=== PATIENT | female | born 1945 | race Hispanic/Latino ===

== ENCOUNTER 2017-01-01 07:37 | Day surgery (SDC) | payer MEDICARE ==
[2017-01-01] MEDS ORDERED: NACL 0.9% IR ONE (07:47)
[2017-01-01] MEDS ORDERED: TETRACAINE 0.5% OS PRN (11:25)
--- NOTE | 2017-01-01 11:34 | Anesthesia Day of Surgery ---
Anesthesia Day of Surgery - Day of Surgery Patient Examined: Yes Patient H&P Reviewed: Yes Patient is NPO: Yes
[2017-01-01] MEDS ORDERED: SUBLIMAZE ONE (11:35)
[2017-01-01] MEDS ORDERED: VERSED ONE (11:36)
--- NOTE | 2017-01-01 11:36 | Anesthesia Consultation ---
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
[2017-01-01] MEDS: VIGAMOX OS SCH ×3 (11:37→11:52)
--- NOTE | 2017-01-01 12:29 | Operative Report ---
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 [employer] HEAVY SURGEON: jc ANESTHESIA: Monitored anesthesia care RN OR LPN: COMPLICATIONS: None ALLERGIES: Codeine PREOPERATIVE NOTE: The patient is awho has the diagnosis or diagnoses salzmann' s nodule and anterior basement membrane dystrophy. The risks, benefits and alternatives ofprocedure were explained to the patient who after confirmining understanding elected to proceed with surgery. The risks discussed included but were not limited to infection,loss of vision, loss of the eye. The patient had multiple opportunities to ask questions and have them answered. A preoperative instruction sheet was provided and explained to the patient and/or family. PROGNOSIS: Excellent INDICATIONS FOR SURGERY: Distortion of vision from the lesion. Without treatment , permanent visual loss is expected. OPERATIVE REPORT: The patient was taken into the preoperative area and then sedated and monitored by Anesthesia. The patient was prepped by applying a Betadine scrub to the periorbital area, the adjacent cheek, and the forehead. The prepped areas were dried with sterile gauze. The patient was draped, and a speculum was placed between the eyelids. A crescent blade was used to remove epithelium and to undermine the Steven nodule. The nodules were removed with two .12 forceps. Scissors were next used to to sized amniotic graft membrane. Fine-tooth forceps were used carefully to elevate the graft and moved to the area of the cornea. Bandage placed, on top of the graft. MEDICATIONS APPLIED AT END OF SURGERY: vigamox was placed onto the eye fallowed by the application of a bandage contact lens. DISCHARGE SUMMARY: The patient was released in stable condition. The patient and those with the patient were given a written sheet of postoperative instructions and counseling on any abnormal laboratory studies. They are to call immediately for difficulties.
--- NOTE | 2017-01-01 12:30 | Short Stay Summary ---
Short Stay Documentation Date of service: 01/01/17 - History H&P: obtained from office - Allergies and Medications Current Medications: Allergies codeine Allergy (Verified 12/31/16 09:42) N&V Home Medications Medication Instructions Recorded Confirmed Last Taken Type Aspirin [Adult Low Dose Aspirin EC] 81 mg PO DAILY 12/31/16 12/31/16 12/31/16 History Cholecalciferol (Vitamin D3) 50,000 unit PO QWEEK 12/31/16 12/31/16 12/31/16 History [Vitamin D3 10,000 unit] Ezetimibe [Zetia] 10 mg PO QDAY 12/31/16 12/31/16 12/31/16 History Oxybutynin Chloride [Ditropan Xl] 10 mg PO QDAY 12/31/16 12/31/16 12/31/16 History Simvastatin [Zocor TAB] 40 mg PO QHS 12/31/16 12/31/16 12/31/16 History Timolol 0.5% [Timoptic] 1 drops OP DAILY 12/31/16 12/31/16 12/31/16 History Active Medications Moxifloxacin HCl (Vigamox) 1 drops OS Q5MIN SHAYY Stop: 01/01/17 23:59 Last Admin: 01/01/17 11:52 Dose: 1 drops Prednisolone Acetate (Pred Forte 1%) 1 drops OS QID SHAYY Tetracaine HCl (Tetracaine 0.5%) 1 drops OS Q5M PRN PRN Reason: Pain Stop: 01/01/17 23:59 Last Admin: 01/01/17 11:35 Dose: 1 drops - Brief post op/procedure progress note Date of procedure: 01/01/17 Pre-op diagnosis: Salsman nodule and anterior membrane dystrophy left eye Post-op diagnosis: same Procedure: Superior keratectomy and anterior lamellar keratoplasty left eye Anesthesia: MAC Surgeon: LINDY LINDSAY Estimated blood loss: none Pathology: none Condition: stable - Disposition Condition at discharge: Good Disposition: DC-01 TO HOME OR SELFCARE - Discharge Diagnoses (1) Salzmann nodular degeneration Status: Resolved (2) Anterior basement membrane dystrophy Status: Resolved Short Stay Discharge Plan Follow up with: PRIMARY CARE, [Primary Care Provider] - 7 Days
--- NOTE | 2017-01-01 13:06 | Post Anesthesia Evaluation ---
- Post Anesthesia Evaluation Patient Participated: Yes Airway Patent: Yes Stable Respiratory Function: Yes Nausea/Vomiting: No Temp > 96.8F: Yes Pain Manageable: Yes Adequeate Hydration: Yes Anesthesia Complications: No Block Receding Appropriately: Not Applicable Patient on Ventilator: No
[2017-01-01] MEDS ORDERED: PRED FORTE 1% OS SCH (14:00)
[2017-01-01 19:41] VITALS: BP 144/66
== END 2017-01-01 13:20 | disposition home or self-care (01) ==
LOC: OR 07:37
DX: H18.452 Nodular corneal degeneration, left eye (principal); G71.0 Muscular dystrophy; I12.9 Hypertensive chronic kidney disease with stage 1 through stage 4 chronic kidney disease, or unspecified chronic kidney disease; N18.3 Chronic kidney disease, stage 3 (moderate); Z88.5 Allergy status to narcotic agent; Z79.899 Other long term (current) drug therapy; Z86.73 Personal history of transient ischemic attack (TIA), and cerebral infarction without residual deficits; Z72.89 Other problems related to lifestyle
CPT/HCPCS: 65710; J2250; J3010; V2790